=== PATIENT | female | born 1990 | race Caucasian/White ===

== ENCOUNTER 2018-06-26 09:37 | Outpatient (CLI) | payer BC ==
[2018-06-26] VITALS (17 sets, daily range): BP systolic 113–128; BP diastolic 71–93
== END 2018-06-26 23:59 | disposition home or self-care (01) ==
LOC: CARD DIAG 09:37
PROVIDERS: ATTEND Physician Assistant
DX: R55 Syncope and collapse (principal); R42 Dizziness and giddiness
CPT/HCPCS: 93660